=== PATIENT | female | born 1985 | race Caucasian/White ===

== ENCOUNTER 2018-04-18 10:06 | Emergency (ER) | payer OTHER ==
[2018-04-18 10:16] VITALS: RESP 18
[2018-04-18] MEDS ORDERED: SODIUM CHLORIDE 0.9% 1,000 ML IV STA (10:38)
--- NOTE | 2018-04-18 10:40 | ED ---
General Adult HPI - General Chief complaint: Abdominal Pain Stated complaint: cramping; Time Seen by Provider: 04/18/18 10:24 Source: patient, RN notes reviewed Mode of arrival: ambulatory Limitations: no limitations - History of Present Illness Initial comments: Patient 33-year-old female who is approximately 2 months by last menstrual cycle, presenting to the emergency room today with a chief complaint of abdominal cramping and dysuria. Patient does admit that she's been seen at [facility] twice during this . She states she's had 2 ultrasounds but they have not been able to confirm . She states that she's been having cramping is been trying follow-up with her OB. States she still does not have an appointment. Patient states that she was diagnosed with urinary tract infection was on antibiotics but still having symptoms of dysuria. Patient denies any other complaints or symptoms. Denies vaginal bleeding or discharge. Patient denies any recent fever, chills, shortness of breath, chest pain, back pain, constipation or diarrhea, headaches or visual changes, or any other complaints. - Related Data Previous Rx's Medication Instructions Recorded Ciprofloxacin HCl [Cipro] 500 mg PO Q12HR #20 day 09/11/15 Phenazopyridine [Pyridium] 100 mg PO TID 3 Days day 09/11/15 Potassium Chloride ER [K-Dur 20] 20 meq PO DAILY 5 Days tab 09/11/15 Nitrofurantoin Monohyd/M-Cryst 100 mg PO Q12HR #14 cap 04/18/18 [Macrobid] Allergies Allergy/AdvReac Type Severity Reaction Status Date / Time Sulfa (Sulfonamide Allergy Unknown Verified 04/18/18 10:16 Antibiotics) Review of Systems ROS Statement: Those systems with pertinent positive or pertinent negative responses have been documented in the HPI. ROS Other: All systems not noted in ROS Statement are negative. Past Medical History Past Medical History: No Reported History Additional Past Medical History / Comment(s): pt states hx of kidney failure History of Any Multi-Drug Resistant Organisms: None Reported Past Surgical History: Cholecystectomy Additional Past Surgical History / Comment(s): 2010 Additional Past Anesthesia/Blood Transfusion Reaction / Comment(s): Pt states diffifulty waking up after cholecystectomy; no complication c\epidurals Past Psychological History: No Psychological Hx Reported Smoking Status: Current every day smoker Past Alcohol Use History: Occasional Past Drug Use History: None Reported - Past Family History Mother Family Medical History: No Reported History General Exam - General Exam Comments Initial Comments: General: The patient is awake and alert, in no distress, and does not appear acutely ill. Eye: Extra-ocular movements are intact. No nystagmus. There is normal conjunctiva bilaterally. No signs of icterus. Ears, nose, mouth and throat: There are moist mucous membranes and no oral lesions. Neck: The neck is supple, there is no tenderness or JVD. Cardiovascular: There is a regular rate and rhythm. No murmur, rub or gallop is appreciated. Respiratory: Lungs are clear to auscultation, respirations are non-labored, breath sounds are equal. No wheezes, stridor, rales, or rhonchi. Gastrointestinal: Soft, non-distended, non-tender abdomen without masses or organomegaly noted. There is no rebound or guarding present. No CVA tenderness. Musculoskeletal: Normal ROM, no tenderness. Sensation intact. Neurological: A&O x 3. CN II-XII intact, There are no obvious motor or sensory deficits. Coordination appears grossly intact. Speech is normal. Skin: Skin is warm and dry and no rashes or lesions are noted. Psychiatric: Cooperative, appropriate mood & affect, normal judgment. Limitations: no limitations Course Vital Signs 04/18/18 10:12 Temperature 98.1 F Pulse Rate 89 Respiratory 18 Rate Blood Pressure 108/68 O2 Sat by Pulse 99 Oximetry Medical Decision Making - Medical Decision Making Patient reexamined at this time shows no signs of distress she is resting comfortably. Patient's urinalysis does show evidence for urinary tract infection. Culture is pending. Patient's main labs unremarkable. Patient's ultrasound does show cecal IUP measuring 12 weeks 0 days today. Patient denies any vaginal bleeding or discharge. Patient given dose of Rocephin prior to discharge will be started on Macrobid. She is advised follow-up over the next 2 days with OB. Advised to have repeat urinalysis. Advised returning if there is any fever or increase or worsening symptoms. - Lab Data Result diagrams: 04/18/18 11:07 04/18/18 11:07 Lab Results 04/18/18 04/18/18 04/18/18 Range/Units 11:07 11:07 11:07 WBC 8.2 (3.8-10.6) k/uL RBC 4.31 (3.80-5.40) m/uL Hgb 12.2 (11.4-16.0) gm/dL Hct 37.5 (34.0-46.0) % MCV 86.8 (80.0-100.0) fL MCH 28.4 (25.0-35.0) pg MCHC 32.7 (31.0-37.0) g/dL RDW 13.0 (11.5-15.5) % Plt Count 357 (150-450) k/uL Neutrophils % 66 % Lymphocytes % 23 % Monocytes % 6 % Eosinophils % 4 % Basophils % 1 % Neutrophils # 5.4 (1.3-7.7) k/uL Lymphocytes # 1.9 (1.0-4.8) k/uL Monocytes # 0.5 (0-1.0) k/uL Eosinophils # 0.3 (0-0.7) k/uL Basophils # 0.1 (0-0.2) k/uL Sodium 138 (137-145) mmol/L Potassium 4.2 (3.5-5.1) mmol/L Chloride 107 (98-107) mmol/L Carbon Dioxide 23 (22-30) mmol/L Anion Gap 8 mmol/L BUN 8 (7-17) mg/dL Creatinine 0.48 L (0.52-1.04) mg/dL Est GFR (CKD-EPI)AfAm >90 (>60 ml/min/1.73 sqM) Est GFR (CKD-EPI)NonAf >90 (>60 ml/min/1.73 sqM) Glucose 79 (74-99) mg/dL Calcium 9.4 (8.4-10.2) mg/dL Total Bilirubin 0.2 (0.2-1.3) mg/dL AST 15 (14-36) U/L ALT 29 (9-52) U/L Alkaline Phosphatase 36 L (38-126) U/L Total Protein 6.8 (6.3-8.2) g/dL Albumin 3.9 (3.5-5.0) g/dL HCG, Quant 61456.8 mIU/mL Urine Color Urine Appearance (Clear) Urine pH (5.0-8.0) Ur Specific [place] (1.001-1.035) Urine Protein (Negative) Urine Glucose (UA) (Negative) Urine Ketones (Negative) Urine Blood (Negative) Urine Nitrite (Negative) Urine Bilirubin (Negative) Urine Urobilinogen (<2.0) mg/dL Ur Leukocyte Esterase (Negative) Urine RBC (0-5) /hpf Urine WBC (0-5) /hpf Ur Squamous Epith Cells (0-4) /hpf Urine Bacteria (None) /hpf Urine Mucus (None) /hpf Blood Type A Positive Blood Type Recheck No 04/18/18 Range/Units 11:07 WBC (3.8-10.6) k/uL RBC (3.80-5.40) m/uL Hgb (11.4-16.0) gm/dL Hct (34.0-46.0) % MCV (80.0-100.0) fL MCH (25.0-35.0) pg MCHC (31.0-37.0) g/dL RDW (11.5-15.5) % Plt Count (150-450) k/uL Neutrophils % % Lymphocytes % % Monocytes % % Eosinophils % % Basophils % % Neutrophils # (1.3-7.7) k/uL Lymphocytes # (1.0-4.8) k/uL Monocytes # (0-1.0) k/uL Eosinophils # (0-0.7) k/uL Basophils # (0-0.2) k/uL Sodium (137-145) mmol/L Potassium (3.5-5.1) mmol/L Chloride (98-107) mmol/L Carbon Dioxide (22-30) mmol/L Anion Gap mmol/L BUN (7-17) mg/dL Creatinine (0.52-1.04) mg/dL Est GFR (CKD-EPI)AfAm (>60 ml/min/1.73 sqM) Est GFR (CKD-EPI)NonAf (>60 ml/min/1.73 sqM) Glucose (74-99) mg/dL Calcium (8.4-10.2) mg/dL Total Bilirubin (0.2-1.3) mg/dL AST (14-36) U/L ALT (9-52) U/L Alkaline Phosphatase (38-126) U/L Total Protein (6.3-8.2) g/dL Albumin (3.5-5.0) g/dL HCG, Quant mIU/mL Urine Color Yellow Urine Appearance Cloudy H (Clear) Urine pH 6.0 (5.0-8.0) Ur Specific [place] 1.018 (1.001-1.035) Urine Protein Trace H (Negative) Urine Glucose (UA) Negative (Negative) Urine Ketones Negative (Negative) Urine Blood Trace H (Negative) Urine Nitrite Negative (Negative) Urine Bilirubin Negative (Negative) Urine Urobilinogen 2.0 (<2.0) mg/dL Ur Leukocyte Esterase Large H (Negative) Urine RBC 8 H (0-5) /hpf Urine WBC 640 H (0-5) /hpf Ur Squamous Epith Cells 3 (0-4) /hpf Urine Bacteria Rare H (None) /hpf Urine Mucus Many H (None) /hpf Blood Type Blood Type Recheck Disposition Clinical Impression: UTI (urinary tract infection), Disposition: HOME SELF-CARE Condition: Good Instructions: Urinary Tract Infection in Women (ED) Additional Instructions: Please follow-up with FAMILY SUPPORT WORKER and have repeat urinalysis. Please use antibiotics as prescribed. Please return to emergency room if any symptoms increase worsen or for any other concerns. Prescriptions: Nitrofurantoin Monohyd/M-Cryst [Macrobid] 100 mg PO Q12HR #14 cap Is patient prescribed a controlled substance at d/c from ED?: No Referrals: Navarro Aguilera MD [Primary Care Provider] - 1-2 days Time of Disposition: 12:43
[2018-04-18 11:20] LABS: Basophils # (A) 0.1 k/uL (0-0.2); Basophils % (A) 1 %; Eosinophils # (A) 0.3 k/uL (0-0.7); Eosinophils % (A) 4 %; HCT 37.5 % (34.0-46.0); HGB 12.2 gm/dL (11.4-16.0); Lymphocytes # (A) 1.9 k/uL (1.0-4.8); Lymphocytes % (A) 23 %; MCH 28.4 pg (25.0-35.0); MCHC 32.7 g/dL (31.0-37.0); MCV 86.8 fL (80.0-100.0); Mean Platelet Volume 6.6; Monocytes # (A) 0.5 k/uL (0-1.0); Monocytes % (A) 6 %; Neutrophils # (A) 5.4 k/uL (1.3-7.7); Neutrophils % (A) 66 %; Platelet Count 357 k/uL (150-450); RBC 4.31 m/uL (3.80-5.40); WBC 8.2 k/uL (3.8-10.6)
[2018-04-18 11:28] LABS: Appearance,Urine Cloudy (Clear); Bacteria,Urine Rare /hpf; Bilirubin,Urine Negative (Negative); Blood,Urine Trace (Negative); Color,Urine Yellow; Glucose,Urine (UA) Negative (Negative); Ketones,Urine Negative (Negative); Leukocyte Esterase,Urine Large (Negative); Mucus,Urine Many /hpf; Nitrite,Urine Negative (Negative); Protein,Urine Trace (Negative); RBC,Urine 8 /hpf (0-5); Specific Gravity,Urine 1.018 (1.001-1.035); Squamous Epithelial Cell,Urine 3 /hpf (0-4)
[2018-04-18 11:30] LABS: ALT 29 U/L (9-52); AST 15 U/L (14-36); Albumin 3.9 g/dL (3.5-5.0); Alkaline Phosphatase 36 U/L (38-126); Anion Gap 8 mmol/L; Blood Urea Nitrogen 8 mg/dL (7-17); Calcium 9.4 mg/dL (8.4-10.2); Carbon Dioxide 23 mmol/L (22-30); Chloride 107 mmol/L (98-107); Glucose 79 mg/dL (74-99); Potassium 4.2 mmol/L (3.5-5.1); Sodium 138 mmol/L (137-145); Total Bilirubin 0.2 mg/dL (0.2-1.3); Total Protein 6.8 g/dL (6.3-8.2)
--- NOTE | 2018-04-18 11:54 | US ---
EXAMINATION TYPE: Ultrasound OB <= 14 week fetus DATE OF EXAM: 04/18/2018 COMPARISON: None CLINICAL HISTORY: 33-year-old female Pain. Intermittent cramping x 2 months, 6, para 3, abort ion 1, miscarriage 1 EXAM PERFORMED: Transabdominal (TA) EXAM MEASUREMENTS: FINDINGS: GESTATIONAL AGE / DATING Physician Established: Not established yet Dates by LMP: Unknown Dates by First Scan: This is 1st scan Dates by Current Scan for: (12 weeks/0 days) EDC: 10/31/2018 MATERNAL ANATOMY Uterus: 11.7 x 8.0 x 8.6cm, anteverted Right Ovary: 2.8 x 1.2 x 1.3cm Left Ovary: 3.4 x 1.8 x 3.9cm Post CDS / Adnexa: wnl Presence of free fluid: no Presence of corpus luteal cyst: left ovary: 1.8 x 0.9 x 1.7cm cystic area, possible corpus luteum Presence of subchorionic bleed: no GESTATION / SURVEY CRL: 5.4cm (12 weeks/0 days) Yolk Sac (normal less than 6mm): 3.5mm Heart Rate: 163 bpm Rhythm: Normal IUP: Viable IUP Nuchal Translucency 10-14wks (normal less than 3mm): 1.3mm Date of LMP: Unknown Beta HcG (if available): Not available at time of exam. Therapeutic Program Worker notes: Viable single IUP measuring 12 weeks 0 days with a heart rate of 163bpm and an est imated delivery date of 10/31/2018. IMPRESSION: Single live intrauterine with gestational age of 12 weeks 0 days by crown-rump length. Comp lete survey recommended at 18-20 weeks.
[2018-04-18 12:21] LABS: HCG,Quantitative Serum 21598.8 mIU/mL
[2018-04-18 13:49] VITALS: BP 106/65; PULSE 71; TEMP 98.2
== END 2018-04-18 13:48 | disposition home or self-care (01) ==
LOC: EC 10:06
DX: O23.41 Unspecified infection of urinary tract in pregnancy, first trimester (principal); O99.331 Smoking (tobacco) complicating pregnancy, first trimester; F17.200 Nicotine dependence, unspecified, uncomplicated; Z3A.12 12 weeks gestation of pregnancy; Z88.2 Allergy status to sulfonamides; Z90.49 Acquired absence of other specified parts of digestive tract
CPT/HCPCS: 36415; 86900; 86901; 80053; 85025; 81001; 84702; 87086; 76813; 76801; 99284; 96365; 96361; J0696

== ENCOUNTER 2019-08-12 01:41 | Emergency (ER) | payer OTHER ==
[2019-08-12 02:14] LABS: Mucus,Urine Occasional /hpf; RBC,Urine 2 /hpf (0-5); Squamous Epithelial Cell,Urine 1 /hpf (0-4); WBC,Urine 1 /hpf (0-5)
[2019-08-12 02:15] LABS: Appearance,Urine Clear (Clear); Bilirubin,Urine Negative (Negative); Blood,Urine Trace (Negative); Color,Urine Yellow; Glucose,Urine (UA) Negative (Negative); Ketones,Urine Negative (Negative); Leukocyte Esterase,Urine Negative (Negative); Nitrite,Urine Negative (Negative); Protein,Urine Negative (Negative); Specific Gravity,Urine 1.026 (1.001-1.035)
[2019-08-12] MEDS ORDERED: AZITHROMYCIN 500 MG TAB PO STA (02:34)
[2019-08-12] MEDS ORDERED: cefTRIAXone 250 MG VIAL IM STA (02:34)
--- NOTE | 2019-08-12 03:19 | ED ---
General Adult HPI - General Chief complaint: Urogenital Stated complaint: Painful urination Time Seen by Provider: 08/12/19 01:55 Source: patient, RN notes reviewed Mode of arrival: ambulatory Limitations: no limitations - History of Present Illness Initial comments: 34-year-old female presents to the emergency dept for dysuria. Patient states she has had pain with urination for the past couple days. Denies difficulty urinating. Patient is concerned she could have a urinary tract infection or STD. Patient denies any abdominal pain. Denies any fevers or chills. Patient has no other complaints at this time including shortness of breath, chest pain, abdominal pain, nausea or vomiting, headache, or visual changes. - Related Data Allergies Allergy/AdvReac Type Severity Reaction Status Date / Time Sulfa (Sulfonamide Allergy Unknown Verified 08/12/19 01:52 Antibiotics) Review of Systems ROS Statement: Those systems with pertinent positive or pertinent negative responses have been documented in the HPI. ROS Other: All systems not noted in ROS Statement are negative. Past Medical History Past Medical History: No Reported History Additional Past Medical History / Comment(s): pt states hx of kidney failure in the past but resolved. History of Any Multi-Drug Resistant Organisms: None Reported Past Surgical History: Cholecystectomy Additional Past Surgical History / Comment(s): 2011, wisdom tooth 2016 Past Anesthesia/Blood Transfusion Reactions: No Reported Reaction Additional Past Anesthesia/Blood Transfusion Reaction / Comment(s): Pt states diffifulty waking up after cholecystectomy; no complication c\epidurals Past Psychological History: Depression Smoking Status: Current every day smoker Past Alcohol Use History: Occasional Past Drug Use History: None Reported - Past Family History Mother Family Medical History: No Reported History General Exam Limitations: no limitations General appearance: alert, in no apparent distress Head exam: Present: atraumatic, normocephalic, normal inspection Eye exam: Present: normal appearance, PERRL, EOMI. Absent: scleral icterus, conjunctival injection, periorbital swelling ENT exam: Present: normal exam, mucous membranes moist Neck exam: Present: normal inspection. Absent: tenderness, meningismus, lymphadenopathy Respiratory exam: Present: normal lung sounds bilaterally. Absent: respiratory distress, wheezes, rales, rhonchi, stridor Cardiovascular Exam: Present: regular rate, normal rhythm, normal heart sounds. Absent: systolic murmur, diastolic murmur, rubs, gallop, clicks GI/Abdominal exam: Present: soft, normal bowel sounds. Absent: distended, tenderness, guarding, rebound, rigid Course Vital Signs 08/12/19 08/12/19 01:50 03:27 Temperature 98 F 97.8 F Pulse Rate 79 81 Respiratory 18 20 Rate Blood Pressure 135/89 129/79 O2 Sat by Pulse 98 97 Oximetry Medical Decision Making - Medical Decision Making 34-year-old patient presents for dysuria. Concern for STDs. No abdominal pain or fever suggestive of PID. Urinalysis unremarkable. Culture pending given dysuria. Trichomonas is negative. Gonorrhea and chlamydia pending. Patient does wish to be treated empirically for these. Patient will follow up on results. She'll return if here if she has any worsening symptoms. - Lab Data Lab Results 08/12/19 08/12/19 08/12/19 Range/Units 01:52 01:52 02:39 Urine Color Yellow Urine Appearance Clear (Clear) Urine pH 6.0 (5.0-8.0) Ur Specific [place] 1.026 (1.001-1.035) Urine Protein Negative (Negative) Urine Glucose (UA) Negative (Negative) Urine Ketones Negative (Negative) Urine Blood Trace H (Negative) Urine Nitrite Negative (Negative) Urine Bilirubin Negative (Negative) Urine Urobilinogen 2.0 (<2.0) mg/dL Ur Leukocyte Esterase Negative (Negative) Urine RBC 2 (0-5) /hpf Urine WBC 1 (0-5) /hpf Ur Squamous Epith Cells 1 (0-4) /hpf Urine Mucus Occasional H (None) /hpf Urine HCG, Qual Not Detected (Not Detectd) Trichomonas Ag (Rapid) Negative (Negative) Disposition Clinical Impression: Dysuria Disposition: HOME SELF-CARE Condition: Good Instructions (If sedation given, give patient instructions): Dysuria (ED) Additional Instructions: Please follow up on urine culture and gonorrhea/Chlamydia results. Please follow-up with primary care in 1-2 days. Return to the emergency department if you have any worsening symptoms such as abdominal pain or fevers. You were treated for both gonorrhea and chlamydia. Is patient prescribed a controlled substance at d/c from ED?: No Referrals: Navarro Aguilera MD [Primary Care Provider] - 1-2 days Time of Disposition: 03:19
[2019-08-12 03:28] VITALS: BP 129/79; PULSE 81; RESP 20; TEMP 97.8
[2019-08-13 12:30] LABS: C. trachomatis,PCR Negative (Neg,Equiv); Chlamydia trachomatis Source Urine
[2019-08-13 12:31] LABS: N. gonorrhoeae,PCR Negative (Neg,Equiv); Neisseria Source Urine
== END 2019-08-12 03:28 | disposition home or self-care (01) ==
LOC: EC 01:41
DX: R30.0 Dysuria (principal); F17.200 Nicotine dependence, unspecified, uncomplicated; Z88.2 Allergy status to sulfonamides
CPT/HCPCS: 81001; 81025; 87808; 87491; 87591; 87086; 99283; J0696

== ENCOUNTER 2021-08-27 21:16 | Emergency (ER) | payer OTHER ==
[2021-08-27] MEDS ORDERED: ACETAMINOPHEN TAB 500 MG TAB PO STA (21:41)
[2021-08-27] MEDS ORDERED: ONDANSETRON ODT 4 MG TAB PO STA (21:43)
[2021-08-27] MEDS ORDERED: SODIUM CHLORIDE 0.9% 1,000 ML IV STA (21:43)
--- NOTE | 2021-08-27 22:11 | ED ---
General Adult HPI - General Source: patient Mode of arrival: ambulatory Limitations: no limitations <Mag Childress - Last Filed: 08/27/21 23:12> <Walker Fried - Last Filed: 08/27/21 23:59> - General Chief complaint: Back Pain/Injury Stated complaint: Back Pain, Abdominal Pain Time Seen by Provider: 08/27/21 21:23 - History of Present Illness Initial comments: This 36-year-old female presents emergency Department with lower back pain that began today at 2 PM. Patient states "I think it's my kidneys that her." Patient states that out of nowhere she began having back pain today and has had a dull aching headache that has slowly been progressing. Patient states she often gets headaches and this feels similar to her usual headaches. Patient states she has a history of kidney infections and "swollen kidneys" Patient states she does feel nauseous and states her pain is 8/10. Patient states her b ack pain does not radiate anywhere. She states she has noticed more cloudy urine over the last couple days but denies any hesitancy, urgency, dribbling. Patient denies any vomiting, chest pain, shortness of breath, abdominal pain, change in vision, bowel/bladder incontinence or retention, saddle anesthesia, vaginal discharge. She denies any back trauma or falls. (Mag Childress) - Related Data Allergies Allergy/AdvReac Type Severity Reaction Status Date / Time Sulfa (Sulfonamide Allergy Unknown Verified 08/27/21 21:19 Antibiotics) Review of Systems ROS Other: All systems not noted in ROS Statement are negative. <Mag Childress - Last Filed: 08/27/21 23:12> ROS Other: All systems not noted in ROS Statement are negative. <Walker Fried - Last Filed: 08/27/21 23:59> ROS Statement: Those systems with pertinent positive or pertinent negative responses have been documented in the HPI. Past Medical History Past Medical History: No Reported History Additional Past Medical History / Comment(s): pt states hx of kidney failure in the past but resolved. History of Any Multi-Drug Resistant Organisms: None Reported Past Surgical History: Cholecystectomy Additional Past Surgical History / Comment(s): 2011, wisdom tooth 2016 Past Anesthesia/Blood Transfusion Reactions: No Reported Reaction Additional Past Anesthesia/Blood Transfusion Reaction / Comment(s): Pt states diffifulty waking up after cholecystectomy; no complication c\\epidurals Past Psychological History: Anxiety, Depression Smoking Status: Current every day smoker Past Alcohol Use History: None Reported, Occasional Past Drug Use History: Marijuana - Past Family History Mother Family Medical History: No Reported History <Mag Childress - Last Filed: 08/27/21 23:12> General Exam Limitations: no limitations General appearance: alert, in no apparent distress Head exam: Present: atraumatic, normocephalic, other (No pain on palpation over her temples. No TMJ pain) Eye exam: Present: normal appearance, EOMI Neck exam: Present: normal inspection, full ROM. Absent: tenderness, meningismus, lymphadenopathy Respiratory exam: Present: normal lung sounds bilaterally. Absent: respiratory distress, wheezes, rales, rhonchi, stridor Cardiovascular Exam: Present: regular rate, normal rhythm, normal heart sounds. Absent: systolic murmur, diastolic murmur, rubs, gallop, clicks GI/Abdominal exam: Present: soft, tenderness (Bilateral lower quadrants with slight discomfort to deep palpation), normal bowel sounds. Absent: distended, guarding, rebound, rigid Extremities exam: Present: full ROM Back exam: Present: normal inspection, full ROM. Absent: tenderness, CVA tenderness (R), CVA tenderness (L), paraspinal tenderness, vertebral tenderness Neurological exam: Present: alert, oriented X3, CN II-XII intact Psychiatric exam: Present: normal affect, normal mood Skin exam: Present: warm, dry, intact, normal color. Absent: rash <LatoshadaytonMag abdullahi - Last Filed: 08/27/21 23:12> General appearance: alert, in no apparent distress Head exam: Present: atraumatic, normocephalic, normal inspection Eye exam: Present: normal appearance, PERRL, EOMI. Absent: scleral icterus, conjunctival injection, periorbital swelling ENT exam: Present: normal exam, mucous membranes moist Neck exam: Present: normal inspection. Absent: tenderness, meningismus, lymphadenopathy Respiratory exam: Present: normal lung sounds bilaterally. Absent: respiratory distress, wheezes, rales, rhonchi, stridor Cardiovascular Exam: Present: regular rate, normal rhythm, normal heart sounds. Absent: systolic murmur, diastolic murmur, rubs, gallop, clicks GI/Abdominal exam: Present: soft, normal bowel sounds. Absent: distended, tenderness, guarding, rebound, rigid Extremities exam: Present: normal inspection, full ROM, normal capillary refill. Absent: tenderness, pedal edema, joint swelling, calf tenderness Back exam: Present: normal inspection Neurological exam: Present: alert, oriented X3, CN II-XII intact Psychiatric exam: Present: normal affect, normal mood Skin exam: Present: warm, dry, intact, normal color. Absent: rash <Walker Fried - Last Filed: 08/27/21 23:59> Course <Mag Childress - Last Filed: 08/27/21 23:12> <Walker Fried - Last Filed: 08/27/21 23:59> Vital Signs 08/27/21 08/27/21 21:19 23:08 Temperature 100.1 F H 100.9 F H Pulse Rate 119 H 102 H Respiratory 20 20 Rate Blood Pressure 117/55 118/76 O2 Sat by Pulse 99 99 Oximetry - Reevaluation(s) Reevaluation #1: 08/27/21 22:30 Patient states she does not feel nauseous at this time and states her pain is decreased from an 8/10 down to a 4/10. 08/27/21 22:56 Patient sleeping, resting comfortably. 08/27/21 23:06 Patient states she is not nauseous her back pain has improved. She does state she still has mild headache. (Mag Childress) Reevaluation #2: 08/27/21 23:57 Medical record is reviewed (Walker Fried) Reevaluation #3: 08/27/21 23:57 Patient has significant improvement in symptoms here in the emergency department (Walker Fried) Medical Decision Making - Lab Data Result diagrams: 08/27/21 22:06 08/27/21 22:06 <Mag Childress - Last Filed: 08/27/21 23:12> - Lab Data Result diagrams: 08/27/21 22:06 08/27/21 22:06 - Radiology Data Radiology results: report reviewed (CT abd pelvis is negative for acute disease), image reviewed <Walker Fried - Last Filed: 08/27/21 23:59> - Medical Decision Making This 36-year-old female presents emergency Department with lower back pain that began at 2 PM today. After fluids and Tylenol, patient states she no longer feels nauseous and that her pain has significantly decreased in her back. Urine showed UTI with: Large leukocyte esterase, BBC 68, RBC 16, moderate blood. Urine hCG not detected. Labs unremarkable. (Mag Childress) 36 female to emergency department today with back pain and urinary tract i nfection, patient does have polynephritis will be discharged home on antibiotics (Walker Fried) - Lab Data Lab Results 08/27/21 08/27/21 08/27/21 Range/Units 22:06 22:06 22:06 WBC 10.3 (3.8-10.6) k/uL RBC 4.61 (3.80-5.40) m/uL Hgb 13.5 (11.4-16.0) gm/dL Hct 40.6 (34.0-46.0) % MCV 88.0 (80.0-100.0) fL MCH 29.2 (25.0-35.0) pg MCHC 33.2 (31.0-37.0) g/dL RDW 13.2 (11.5-15.5) % Plt Count 332 (150-450) k/uL MPV 8.3 Neutrophils % 86 % Lymphocytes % 3 % Monocytes % 9 % Eosinophils % 2 % Basophils % 1 % Neutrophils # 8.9 H (1.3-7.7) k/uL Lymphocytes # 0.3 L (1.0-4.8) k/uL Monocytes # 0.9 (0-1.0) k/uL Eosinophils # 0.2 (0-0.7) k/uL Basophils # 0.1 (0-0.2) k/uL Sodium (137-145) mmol/L Potassium (3.5-5.1) mmol/L Chloride (98-107) mmol/L Carbon Dioxide (22-30) mmol/L Anion Gap mmol/L BUN (7-17) mg/dL Creatinine (0.52-1.04) mg/dL Est GFR (CKD-EPI)AfAm (>60 ml/min/1.73 sqM) Est GFR (CKD-EPI)NonAf (>60 ml/min/1.73 sqM) Glucose (74-99) mg/dL Plasma Lactic Acid Yordy (0.7-2.0) mmol/L Calcium (8.4-10.2) mg/dL Total Bilirubin (0.2-1.3) mg/dL AST (14-36) U/L ALT (4-34) U/L Alkaline Phosphatase (38-126) U/L Total Protein (6.3-8.2) g/dL Albumin (3.5-5.0) g/dL Lipase (23-300) U/L Urine Color Yellow Urine Appearance Cloudy H (Clear) Urine pH 6.0 (5.0-8.0) Ur Specific [place] 1.026 (1.001-1.035) Urine Protein Trace H (Negative) Urine Glucose (UA) Negative (Negative) Urine Ketones 1+ H (Negative) Urine Blood Moderate H (Negative) Urine Nitrite Negative (Negative) Urine Bilirubin Negative (Negative) Urine Urobilinogen 2.0 (<2.0) mg/dL Ur Leukocyte Esterase Large H (Negative) Urine RBC 16 H (0-5) /hpf Urine WBC 68 H (0-5) /hpf Ur Squamous Epith Cells 12 H (0-4) /hpf Urine Bacteria Many H (None) /hpf Urine Mucus Many H (None) /hpf Urine HCG, Qual Not Detected (Not Detectd) Coronavirus (PCR) (Not Detectd) 08/27/21 08/27/21 08/27/21 Range/Units 22:06 22:06 23:05 WBC (3.8-10.6) k/uL RBC (3.80-5.40) m/uL Hgb (11.4-16.0) gm/dL Hct (34.0-46.0) % MCV (80.0-100.0) fL MCH (25.0-35.0) pg MCHC (31.0-37.0) g/dL RDW (11.5-15.5) % Plt Count (150-450) k/uL MPV Neutrophils % % Lymphocytes % % Monocytes % % Eosinophils % % Basophils % % Neutrophils # (1.3-7.7) k/uL Lymphocytes # (1.0-4.8) k/uL Monocytes # (0-1.0) k/uL Eosinophils # (0-0.7) k/uL Basophils # (0-0.2) k/uL Sodium 138 (137-145) mmol/L Potassium 3.5 (3.5-5.1) mmol/L Chloride 104 (98-107) mmol/L Carbon Dioxide 21 L (22-30) mmol/L Anion Gap 13 mmol/L BUN 6 L (7-17) mg/dL Creatinine 0.67 (0.52-1.04) mg/dL Est GFR (CKD-EPI)AfAm >90 (>60 ml/min/1.73 sqM) Est GFR (CKD-EPI)NonAf >90 (>60 ml/min/1.73 sqM) Glucose 96 (74-99) mg/dL Plasma Lactic Acid Yordy 1.2 (0.7-2.0) mmol/L Calcium 10.0 (8.4-10.2) mg/dL Total Bilirubin 0.3 (0.2-1.3) mg/dL AST 30 (14-36) U/L ALT 25 (4-34) U/L Alkaline Phosphatase 56 (38-126) U/L Total Protein 7.6 (6.3-8.2) g/dL Albumin 4.6 (3.5-5.0) g/dL Lipase 35 (23-300) U/L Urine Color Urine Appearance (Clear) Urine pH (5.0-8.0) Ur Specific [place] (1.001-1.035) Urine Protein (Negative) Urine Glucose (UA) (Negative) Urine Ketones (Negative) Urine Blood (Negative) Urine Nitrite (Negative) Urine Bilirubin (Negative) Urine Urobilinogen (<2.0) mg/dL Ur Leukocyte Esterase (Negative) Urine RBC (0-5) /hpf Urine WBC (0-5) /hpf Ur Squamous Epith Cells (0-4) /hpf Urine Bacteria (None) /hpf Urine Mucus (None) /hpf Urine HCG, Qual (Not Detectd) Coronavirus (PCR) Not Detected (Not Detectd) Disposition <Mag Childress - Last Filed: 08/27/21 23:12> Is patient prescribed a controlled substance at d/c from ED?: No <Walker Fried - Last Filed: 08/27/21 23:59> Clinical Impression: UTI (urinary tract infection), Pyelonephritis Disposition: HOME SELF-CARE Condition: Good Instructions (If sedation given, give patient instructions): Kidney Infection (ED), Urinary Tract Infection in Women (ED) Prescriptions: Cephalexin [Keflex] 500 mg PO Q6HR 1 Days #40 cap Referrals: Navarro Aguilera MD [Primary Care Provider] - 1-2 days
[2021-08-27 22:43] LABS: Basophils # (A) 0.1 k/uL (0-0.2); Basophils % (A) 1 %; Eosinophils # (A) 0.2 k/uL (0-0.7); Eosinophils % (A) 2 %; HCT 40.6 % (34.0-46.0); HGB 13.5 gm/dL (11.4-16.0); Lymphocytes # (A) 0.3 k/uL (1.0-4.8); Lymphocytes % (A) 3 %; MCH 29.2 pg (25.0-35.0); MCHC 33.2 g/dL (31.0-37.0); Mean Platelet Volume 8.3; Monocytes # (A) 0.9 k/uL (0-1.0); Monocytes % (A) 9 %; Neutrophils # (A) 8.9 k/uL (1.3-7.7); Neutrophils % (A) 86 %; Platelet Count 332 k/uL (150-450); RBC 4.61 m/uL (3.80-5.40); RDW 13.2 % (11.5-15.5); WBC 10.3 k/uL (3.8-10.6)
[2021-08-27 22:45] LABS: Appearance,Urine Cloudy (Clear); Bacteria,Urine Many /hpf; Bilirubin,Urine Negative (Negative); Blood,Urine Moderate (Negative); Color,Urine Yellow; Glucose,Urine (UA) Negative (Negative); Ketones,Urine 1+ (Negative); Leukocyte Esterase,Urine Large (Negative); Mucus,Urine Many /hpf; Nitrite,Urine Negative (Negative); Protein,Urine Trace (Negative); RBC,Urine 16 /hpf (0-5); Specific Gravity,Urine 1.026 (1.001-1.035); Squamous Epithelial Cell,Urine 12 /hpf (0-4); WBC,Urine 68 /hpf (0-5)
[2021-08-27 22:54] LABS: ALT 25 U/L (4-34); AST 30 U/L (14-36); African American GFR (CKD) >90 (>60 ml/min/1.73 sqM); Albumin 4.6 g/dL (3.5-5.0); Alkaline Phosphatase 56 U/L (38-126); Anion Gap 13 mmol/L; Blood Urea Nitrogen 6 mg/dL (7-17); Carbon Dioxide 21 mmol/L (22-30); Chloride 104 mmol/L (98-107); Glucose 96 mg/dL (74-99); Lipase 35 U/L (23-300); Non-African American GFR(CKD) >90 (>60 ml/min/1.73 sqM); Potassium 3.5 mmol/L (3.5-5.1); Sodium 138 mmol/L (137-145); Total Bilirubin 0.3 mg/dL (0.2-1.3); Total Protein 7.6 g/dL (6.3-8.2)
[2021-08-27] MEDS ORDERED: ONDANSETRON 4 MG/2 ML VIAL IVP STA (23:11)
[2021-08-27] MEDS ORDERED: KETOROLAC 15 MG/ML 1 ML VIAL IVP STA (23:11)
--- NOTE | 2021-08-27 23:51 | CT ---
EXAMINATION TYPE: CT abdomen pelvis wo con DATE OF EXAM: 08/27/2021 COMPARISON: 04/26/2010 HISTORY: Abdominal pain CT DLP: 524.2 mGycm Automated exposure control for dose reduction was used. Images obtained from the diaphragm to the floor the pelvis with no contrast. There is some mild subsegmental atelectasis in the lingula left upper lobe. There is no pleural effus ion. Heart size is normal. There is no pericardial effusion. There are clips from cholecystectomy. Liver is intact. Spleen is intact. There is no evidence of panc reatic mass. Stomach has normal contour. The bile ducts are not dilated. There is no adrenal mass. Kidneys of normal size. There is slight fullness of the left and right aleisha l pelvis but the ureters are not dilated. I see no evidence of a ureteral calculus. The uterus is ant everted. Bladder distends smoothly. There is no inguinal hernia. There is no free fluid in the pelvis . Appendix is posterior and appears normal. There is no mesenteric edema. There is broad-based umbilica l hernia that contains fat. There is no ascites or free air. There is no evidence of a bowel obstruct ion. No pelvic mass. The lumbar vertebrae have normal alignment. There is no compression fracture. Po sterior elements are intact. The bony pelvis is intact. Hip joints appear normal. IMPRESSION: No acute abnormality of the abdomen and pelvis. Normal appendix. Mild broad-based umbilical hernia co ntaining fat. There is clearing of the ovarian cysts compared to old exam. Normal appendix. There is small lingular infiltrate and atelectasis which is new compared to old exam. No evidence of renal stone or obstruction.
[2021-08-27] MEDS ORDERED: CEPHALEXIN 500MG STARTER PACK 4 CAP BTL PO STA (23:54)
[2021-08-27] MEDS ORDERED: IBUPROFEN 600 MG STARTER PACK 4 TAB BTL PO STA (23:54)
[2021-08-28 01:09] VITALS: BP 110/56; PULSE 99; RESP 16; TEMP 99.4
[2021-08-28] MEDS ORDERED: diphenhydrAMINE 50 MG/ML 1 ML VIAL IVP STA (01:16)
[2021-08-28] MEDS ORDERED: PROCHLORPERAZINE INJ 10 MG/2 ML VIAL IVP STA (01:16)
[2021-08-28] MEDS ORDERED: AZITHROMYCIN 500 MG TAB PO STA (01:16)
[2021-08-28] MEDS ORDERED: IBUPROFEN 800 MG TAB PO STA (01:16)
== END 2021-08-28 01:22 | disposition home or self-care (01) ==
LOC: EC 21:16
DX: N39.0 Urinary tract infection, site not specified (principal); N12 Tubulo-interstitial nephritis, not specified as acute or chronic; F17.200 Nicotine dependence, unspecified, uncomplicated; Z20.822 Contact with and (suspected) exposure to COVID-19; Z88.2 Allergy status to sulfonamides
CPT/HCPCS: 99284; 96365; 96375; 96361; 36415; 80053; 83605; 83690; 85025; 81001; 81025; 87086; 87635; 74176; J1200; J0780; J2405; J0696; J1885

== ENCOUNTER → 2021-10-20 | Outpatient (CLI) | payer OTHER ==
--- NOTE | 2021-10-20 09:57 | MM ---
Reason for exam: clinical finding. Baseline mammogram. History: Patient has breast cancer gene. Family history of breast cancer in maternal grandmother and breast cancer in maternal aunt. Indicated problem(s): lump or thickening in the left breast. Physical Findings: A clinical breast exam by your physician is recommended on an annual basis and results should be correlated with mammographic findings. [facility] Diagnostic Mammo w CAD JIM Bilateral CC and MLO view(s) were taken. The breast tissue is heterogeneously dense. This may lower the sensitivity of mammography. 8mm nodule right breast at 9 o'clock, 4.2cm from nipple. Left breast 12 o'clock thickened areola. Ultrasound left palpable. These results were verbally communicated with the patient and result sheet given to the patient on 10/20/21. ASSESSMENT: Incomplete: need additional imaging evaluation, BI-RAD 0 RECOMMENDATION: Ultrasound of both breasts. Manage patient on a clinical basis.
--- NOTE | 2021-10-20 10:00 | USB ---
Reason for exam: additional evaluation requested from abnormal screening. History: Patient has breast cancer gene. Family history of breast cancer in maternal grandmother and breast cancer in maternal aunt. Physical Findings: A clinical breast exam by your physician is recommended on an annual basis and results should be correlated with mammographic findings. US Breast Limited BILAT Left limited breast ultrasound including focal area of concern, retroareolar and axilla demonstrates a 0.5 x 0.2 x 0.6cm questionable sebaceous cyst at 11 o'clock areola, a 0.5 x 0.4 x 0.6cm lesion at 11 o'clock and a 0.5 x 0.4 x 0.5cm lesion at 12 o'clock. Left limited breast ultrasound including focal area of concern, retroareolar and axilla is negative. Scanned 9-12 o'clock bilaterally. These results were verbally communicated with the patient and result sheet given to the patient on 10/20/21. ASSESSMENT: Probably benign, BI-RAD 3 RECOMMENDATION: Follow-up diagnostic mammogram and ultrasound of the left breast in 6 months. Manage patient on a clinical basis.
== END | disposition home or self-care (01) ==
LOC: RADMAMWWP 08:14
PROVIDERS: ATTEND Obstetrics & Gynecology
DX: N63.20 Unspecified lump in the left breast, unspecified quadrant (principal)
CPT/HCPCS: 77066

== ENCOUNTER → 2021-11-26 | Outpatient (CLI) | payer OTHER ==
[2021-11-26 11:16] VITALS: BP 125/89; PULSE 83; RESP 17; TEMP 97.8
--- NOTE | 2021-11-26 11:46 | P.GSHP ---
History of Present Illness H&P Date: 11/26/21 Chief Complaint: abnormal mammogram/ left breast ultrasound Marielena is a 36 year old white female seen in consultation for Dr. Nixon regarding a nodule in her left breast for several days. The nodularity was close to the areolar and has since decreased in size. The patient however obtained a bilateral mammogram and bilateral breast ultrasound. The bilateral mammogram this time and this was felt to be incomplete and bilateral breast ultrasound was recommended. On the ultrasound demonstrated date the findings were Left breast: 0.5 x 0.6 cm questionable sebaceous cyst at 11:00 areolar 0.5 x 0.6 cm lesion at 11:00 0.5 x 0.5 cm lesion at 12:00 Right breast: No lesions of concern identified. At this time the patient does not have any new lumps masses or notches of concern in either breast. Additionally the patient does not have any new pains in her breast. She is not complaining of any nipple discharge or skin changes. She has never had any surgery on her breast. The patient had genetic testing performed and is not has been noted to have an DC mutation. She was given a discussion regarding prophylactic tamoxifen and/or prophylactic mastectomy. The testing was done in 2019. Studies for increased risk of breast cancer ranged from 20-60%. Additionally it appears that there may be an increased risk for pancreatic and colon cancer. Caffeine: mountain dew all day nicotine: 1 PPD/ 20 years chocolate: rare BCP: depo shot; every three months hormones: none Family History: son: neuroblastoma stage 4 diagnosed at 3, he is 6 at this time maternal grandmother: breast, lung cancer maternal great aunt: lung cancer maternal great uncle: rectal cancer Hormonal History: menarche: 16 A2, age at first live : 18, breast fed: yes periods regular: LMP 1 month ago BCP: took them when a teen ager, and used nuvaring Surgical History: gallbladder Medical History: none Social History: Nicotine: One pack per day Alcohol: Negative Drugs: Negative - Constitutional Constitutional: Denies chills, Denies fever - EENT Eyes: bilateral blurred vision, bilateral pain Ears: right: tinnitus, deny: decreased hearing Ears, nose, mouth and throat: Reports headache - Breasts Breasts: bilateral: as per HPI - Cardiovascular Cardiovascular: Reports chest pain - Respiratory Comment: smoker - Gastrointestinal Gastrointestinal: Reports constipation - Genitourinary (Female) Comment: UTI frequant - Menstruation Menstruation: Reports as per HPI - Musculoskeletal Musculoskeletal: Denies myalgias - Integumentary Integumentary: Denies pruritus, Denies rash - Neurological Neurological: Denies numbness, Denies weakness - Psychiatric Psychiatric: Reports anxiety - Endocrine Endocrine: Reports fatigue - Hematologic/Lymphatic Comment: none - Allergic/Immunologic Allergic/Immunologic: Reports as per HPI Past Medical History Past Medical History: No Reported History Additional Past Medical History / Comment(s): pt states hx of kidney failure in the past but resolved. History of Any Multi-Drug Resistant Organisms: None Reported Past Surgical History: Cholecystectomy Additional Past Surgical History / Comment(s): 2011, wisdom tooth 2016 Past Anesthesia/Blood Transfusion Reactions: No Reported Reaction Additional Past Anesthesia/Blood Transfusion Reaction / Comment(s): Pt states diffifulty waking up after cholecystectomy; no complication c\epidurals Past Psychological History: Anxiety, Depression Additional Psychological History / Comment(s): states depression now due to 3 yr old with stage 4 cancer Smoking Status: Current every day smoker, Vaper Past Alcohol Use History: None Reported, Occasional Past Drug Use History: Marijuana Additional Drug Use History / Comment(s): states marijuana use as teen - Past Family History Mother Family Medical History: No Reported History Medications and Allergies Home Medications Medication Instructions Recorded Confirmed Type No Known Home Medications 11/26/21 11/26/21 History Allergies Allergy/AdvReac Type Severity Reaction Status Date / Time Sulfa (Sulfonamide Allergy Unknown Verified 11/26/21 11:13 Antibiotics) Surgical - Exam Vital Signs Temp Pulse Resp BP Pulse Ox 97.8 F 83 17 125/89 97 11/26/21 11:13 11/26/21 11:13 11/26/21 11:13 11/26/21 11:13 11/26/21 11:13 BMI: 29.3 - General no distress - Eyes normal ocular movement - Neck trachea midline - Respiratory normal respiratory effort - Cardiovascular Rhythm: regular Heart Sounds: normal: S1, S2 - Abdomen Abdomen: soft - Integumentary multiple tattoos - Neurologic no disoriented, no combative - Musculoskeletal normal gait - Psychiatric oriented to time, oriented to person, oriented to place, speech is normal, memory intact Breast examination: Bra: Sports bra medium Inspection: Bilateral grade 2 ptosis Palpation: Right breast: Multiple positional exam no dominant masses or nodules of concern Right axilla: No adenopathy of concern Left breast: Multi-positional exam no dominant masses or nodules of concern, the area of prior palpable abnormality is no longer palpable which the patient felt in the past Left axilla: No adenopathy of concern Results Mammogram and ultrasound reviewed in detail with Dr. Smith Assessment and Plan Assessment: Impression: Fibrocystic breast changes Abnormal left breast ultrasound DC mutation Positive family history of cancer Plan: After discussion with the patient and her mother the patient wishes an ultrasound core biopsy of the area at 12:00 in the left breast. This has been discussed with Dr. Smith initially we were considering watching the area however given the patient's DC mutation and concerns she would like to have a biopsy performed. Risk and benefits of the procedure discussed with the patient and her mother. Risks include but are not limited to bleeding, infection, reaction to the anesthetic. They understand and wish to proceed with the biopsy. They understand of the biopsy were discordant then further recommendation may be made. Cc: Dr. Aguilera
== END | disposition home or self-care (01) ==
LOC: WWCWWP 10:51
PROVIDERS: ATTEND Surgery
DX: Z53.9 Procedure and treatment not carried out, unspecified reason (principal)

== ENCOUNTER → 2021-12-08 | Day surgery (SDC) | payer OTHER ==
--- NOTE | 2021-12-09 07:36 | USB ---
EXAMINATION TYPE: US breast aspiration single LT DATE OF EXAM: 12/08/2021 CLINICAL HISTORY: R92.8 ABN MAMMO. TECHNIQUE: Ultrasound guided vaccuum assisted core biopsy of left breast. Ultrasound guided cyst asp iration left breast COMPARISON: 10/20/2021 ultrasound FINDINGS: The ultrasound guided core biopsy procedure was explained to the patient. The risks, benef its, alternatives were discussed. An informed consent was then obtained. Timeout was performed. The patient was placed in supine positioning for imaging and for the procedure. The overlying skin w as prepped with betadine and sterilely draped in usual sterile fashion. Lidocaine 1% was used as ane sthetic into the skin and deeper breast tissue up to area of concern in the breast. A small skin kelly k was made with surgical scalpel. Under ultrasound guidance, an 18-gauge vacuum assisted cyst aspiration device was used to obtain a sa mple. There was complete collapse of this very tiny cyst. A biopsy clip was left in lesion. Coil cli p was left at this location. Under ultrasound guidance, a 12-gauge vacuum assisted biopsy device was used to obtain 3 core samples . Additional sampling was not done, appear to be complete resection of the area in question. A biops y clip was left in lesion. [place] fam was placed. Good hemostasis was obtained with direct pressure. Discharge instructions were discussed with the isra russ. The patient will follow up with the referring physician for results. Postprocedure mammogram: The patient was transferred to mammography for physician ordered post proced ure mammogram for clip placement verification. The clips are in the expected regions of the biopsy. The patient tolerated the procedure well without any immediate complication. The patient was dischar ged to home in stable condition. IMPRESSION: 1. Successful ultrasound-guided cyst aspiration 11:00 position left breast. 2. Successful ultrasound guided biopsy left breast 12:00 position. Recommendations: 1. Recommendations are pending pathology results.
== END ==
LOC: RADUSWWP 12:35
PROVIDERS: ATTEND Surgery
DX: R92.8 Other abnormal and inconclusive findings on diagnostic imaging of breast (principal)
CPT/HCPCS: 19000; 19083; 88173; 77065; 76942; A4648; 88305; 88342

== ENCOUNTER → 2021-12-16 | Outpatient (CLI) | payer OTHER ==
[2021-12-16 08:19] VITALS: BP 128/87; PULSE 98; RESP 16; TEMP 98.1
--- NOTE | 2021-12-16 08:29 | P.PN ---
Subjective Progress Note Date: 12/16/21 Principal diagnosis: Fibrocystic breast changes Marielena is a 36-year-old white female status post ultrasound-guided core biopsy of her left breast at 12:00 and left breast at 11:00 on [id number]. Pathology from the 12 o'clock position revealed fibrocystic changes including fi beulah adenomatoid hyperplasia and serial angiomatous stromal hyperplasia. That at 11:00 revealed clusters of bland apocrine lining cells, foamy histiocytes and degenerative cellular material. She tolerated the procedure without difficulty. 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 It has been suggested that women who carry this mutation have a 20-60% increased risk for breast cancer. We also thought to be at increased risk for early onset breast cancer and bilateral breast cancer. Breast cancer screening with annual mammogram and consider breast MRI with contrast starting at the age of 40. She could also consider a risk reducing mastectomies. She underwent genetic testing secondary to the fact that her son has stage IV neuroblastoma. Family History: Maternal grandmother: cancer uncertain of the type Maternal great aunts: Lung cancer Maternal great uncle colon cancer uncertain of the type Maternal great aunt: cancer son: Stage IV neuroblastoma Objective - Constitutional General appearance: Present: cooperative - EENT Eyes: Present: EOMI ENT: Present: hearing grossly normal - Respiratory Respiratory: bilateral: CTA - Cardiovascular Heart sounds: normal: S1, S2 - Integumentary Integumentary Comment(s): Biopsy site clean and dry Integumentary: Present: normal turgor - Musculoskeletal Musculoskeletal: Present: gait normal - Psychiatric Psychiatric: Present: A&O x's 3, appropriate affect, intact judgment & insight Assessment and Plan Assessment: Impression: Biopsy left breast benign Patient has DC gene mutation Patient is at increased risk for breast cancer secondary to Armando mutation Plan: I discussed with the patient and her mother the option of prophylactic mastectomy, possible hormone endocrine therapy with appointment with medical oncology, and close surveillance At this time the patient would prefer close surveillance We will do a repeat bilateral mammogram in 1 year with physician exam at that time Repeat left breast mammogram in 6 months and I will see her at that time CC: Dr. Aguilera
== END | disposition home or self-care (01) ==
LOC: WWCWWP 08:01
PROVIDERS: ATTEND Surgery
DX: Z53.9 Procedure and treatment not carried out, unspecified reason (principal)

== ENCOUNTER 2023-08-27 09:51 | Emergency (ER) | payer OTHER ==
[2023-08-27 11:05] VITALS: RESP 16; TEMP 97.6
[2023-08-27] MEDS ORDERED: LIDOCAINE 4% PATCH TOPICAL ONE (11:13)
[2023-08-27] MEDS ORDERED: SODIUM CHLORIDE 0.9% 1,000 ML IV STA (11:13)
[2023-08-27] MEDS ORDERED: KETOROLAC 15 MG/ML 1 ML VIAL IVP STA (11:13)
--- NOTE | 2023-08-27 11:26 | ED ---
Back Pain HPI - General Chief Complaint: Urogenital Stated Complaint: R kidney pain Time Seen by Provider: 08/27/23 10:59 Source: patient, RN notes reviewed Mode of arrival: ambulatory Limitations: no limitations - History of Present Illness Initial Comments: This is a 38-year-old female who presents to the emergency department for right flank pain. States that this started on 08/16, and she went to a walk-in clinic at that time. She was told that there was blood in her urine and her pain may be related to an infection or kidney stone. She was started on a five-day course of antibiotics, which she has since finished. However, symptoms did not improve and she returned to the walk in clinic. They advised that this may be musculoskeletal in nature and recommended muscle relaxants, however the patient did not want to take those. They did recheck her urine today, and she was told there was not any additional blood present. She does occasionally have morning nausea. Denies any fevers or chills. Denies any history of kidney stones. The pain does not wrap around into the abdomen and she also denies any chest pain or shortness of breath. MD Complaint: back pain - Related Data Home Medications Medication Instructions Recorded Confirmed Medroxyprogesterone Acetate 150 mg IM QMONTHLY 12/16/21 12/16/21 [Depo-Provera] Previous Rx's Medication Instructions Recorded Ketorolac [Toradol] 10 mg PO Q6HR PRN #15 tab 08/27/23 Lidocaine 5% Patch [Lidoderm 5% 1 patch TOPICAL DAILY PRN #30 patch 08/27/23 Patch] methocarbamoL [Robaxin-750] 750 mg PO QID PRN #20 tab 08/27/23 Allergies Allergy/AdvReac Type Severity Reaction Status Date / Time Sulfa (Sulfonamide Allergy Unknown Verified 08/27/23 10:54 Antibiotics) Review of Systems ROS Statement: Those systems with pertinent positive or pertinent negative responses have been documented in the HPI. ROS Other: All systems not noted in ROS Statement are negative. Past Medical History Past Medical History: No Reported History Additional Past Medical History / Comment(s): pt states hx of kidney failure in the past but resolved. History of Any Multi-Drug Resistant Organisms: None Reported Past Surgical History: Cholecystectomy Additional Past Surgical History / Comment(s): 2011, wisdom tooth 2016 Past Anesthesia/Blood Transfusion Reactions: No Reported Reaction Additional Past Anesthesia/Blood Transfusion Reaction / Comment(s): Pt states diffifulty waking up after cholecystectomy; no complication c\epidurals Past Psychological History: Anxiety, Depression, Panic Disorder Smoking Status: Current every day smoker, Vaper Past Alcohol Use History: None Reported, Occasional Past Drug Use History: Marijuana - Past Family History Mother Family Medical History: No Reported History General Exam Limitations: no limitations General appearance: alert, in no apparent distress Head exam: Present: atraumatic, normocephalic, normal inspection Respiratory exam: Present: normal lung sounds bilaterally. Absent: respiratory distress, wheezes, rales, rhonchi, stridor Cardiovascular Exam: Present: regular rate, normal rhythm, normal heart sounds. Absent: systolic murmur, diastolic murmur, rubs, gallop, clicks GI/Abdominal exam: Present: soft, normal bowel sounds. Absent: distended, tenderness, guarding, rebound, rigid Back exam: Present: CVA tenderness (R) Neurological exam: Present: alert, oriented X3, CN II-XII intact Psychiatric exam: Present: normal affect, normal mood Skin exam: Present: warm, dry, intact, normal color. Absent: rash Course Vital Signs 08/27/23 08/27/23 10:49 14:10 Temperature 97.6 F 97.6 F Pulse Rate 72 80 Respiratory 16 16 Rate Blood Pressure 124/85 132/97 O2 Sat by Pulse 95 100 Oximetry Medical Decision Making - Medical Decision Making This is a 38-year-old female who presents to the emergency department for right flank pain. Was pt. sent in by a medical professional or institution? @ -No Did you speak to anyone other than the patient for history? @ -No Did you review nursing and triage notes? @ -Yes, and I agree, it is accurate with regards to the patient's symptoms. Were old charts reviewed? @ -No Differential Diagnosis? @ -Differential Back Pain: Strain, zoster, cauda equina syndrome, epidural abscess, vertebral osteomyelitis, discitis, fracture, subluxation, disc herniation, DJD, spinal stenosis, dissection, AAA, pancreatitis, peptic ulcer disease, pyelonephritis, kidney stone, this is not meant to be an all-inclusive list. EKG interpreted by me (3pts min.)? @ -Not obtained X-rays interpreted by me (1pt min.)? @ -Not obtained CT interpreted by me (1pt min.)? @ -CT scan of the abdomen/pelvis obtained. My interpretation identifies no evidence of a ureteral calculus. U/S interpreted by me (1pt. min.)? @ -Not obtained What testing was considered but not performed? (CT, X-rays, U/S, labs)? Why? @ -None What meds were considered but not given? Why? @ -None Did you discuss the management of the patient with other professionals? @ -No Did you reconcile home meds? @ -No Was smoking cessation discussed for >3mins.? @ -No Was critical care preformed (if so, how long)? @ -No Were there social determinants of health that impacted care today? How? (Homelessness, low income, unemployed, alcoholism, drug addiction, transportation, low edu. Level, literacy, decrease access to med. care, custodial, r ehab)? @ -No Was there de-escalation of care discussed even if they declined? (Discuss DNR or withdrawal of care, Hospice)? @ -No What co-morbidities impacted this encounter? (DM, HTN, Smoking, COPD, CAD, Cancer, CVA, Hep., AIDS, mental health diagnosis, sleep apnea, morbid obesity)? @ -None Was patient admitted / discharged? @ -Discharged. Lab work obtained and found to be unremarkable. Urinalysis negative for signs of infection. Computed tomography scan of the abdomen and pelvis obtained revealing no acute process. Symptoms well controlled with IV fluids, Toradol, and a lidocaine patch. Advised that this is likely musculoskeletal in nature. Rx for Toradol, lidocaine patches, and robaxin provided with dosing instructions reviewed. Otherwise advised follow up with her PCP. Undiagnosed new problem with uncertain prognosis? @ -None Drug Therapy requiring intensive monitoring for toxicity (Heparin, Nitro, Insulin, Cardizem)? @ -None Were any procedures done? @ -None Diagnosis/symptom? @ -Right flank pain Acute, or Chronic, or Acute on Chronic? @ -Acute Uncomplicated (without systemic symptoms) or Complicated (systemic symptoms)? @ -Uncomplicated Side effects of treatment? @ -None Exacerbation, Progression, or Severe Exacerbation] @ -Not applicable Poses a threat to life or bodily function? @ -No Return precautions reviewed in depth, the patient is instructed to return to the emergency department with any new, worsening, or concerning symptoms. Patient verbalized understanding. This case was discussed in detail with the attending ED physician, Dr. Rodriguez. Presentation, findings, and treatment plan discussed in detail as well. - Lab Data Result diagrams: 08/27/23 11:25 08/27/23 11:25 Lab Results 08/27/23 08/27/23 08/27/23 Range/Units 11:25 11:25 11:25 WBC 8.2 (3.8-10.6) k/uL RBC 5.06 (3.80-5.40) m/uL Hgb 14.2 (11.4-16.0) gm/dL Hct 43.9 (34.0-46.0) % MCV 86.8 (80.0-100.0) fL MCH 28.1 (25.0-35.0) pg MCHC 32.4 (31.0-37.0) g/dL RDW 13.7 (11.5-15.5) % Plt Count 377 (150-450) k/uL MPV 8.6 Neutrophils % 64 % Lymphocytes % 25 % Monocytes % 5 % Eosinophils % 3 % Basophils % 1 % Neutrophils # 5.3 (1.3-7.7) k/uL Lymphocytes # 2.1 (1.0-4.8) k/uL Monocytes # 0.4 (0-1.0) k/uL Eosinophils # 0.3 (0-0.7) k/uL Basophils # 0.1 (0-0.2) k/uL Sodium (137-145) mmol/L Potassium (3.5-5.1) mmol/L Chloride (98-107) mmol/L Carbon Dioxide (22-30) mmol/L Anion Gap mmol/L BUN (7-17) mg/dL Creatinine (0.52-1.04) mg/dL Est GFR (CKD-EPI)AfAm (>60 ml/min/1.73 sqM) Est GFR (CKD-EPI)NonAf (>60 ml/min/1.73 sqM) Glucose (74-99) mg/dL Plasma Lactic Acid Yordy (0.7-2.0) mmol/L Calcium (8.4-10.2) mg/dL Total Bilirubin (0.2-1.3) mg/dL AST (14-36) U/L ALT (4-34) U/L Alkaline Phosphatase (38-126) U/L Total Protein (6.3-8.2) g/dL Albumin (3.5-5.0) g/dL Amylase (30-110) U/L Lipase (23-300) U/L Urine Color Light Yellow Urine Appearance Clear (Clear) Urine pH 6.0 (5.0-8.0) Ur Specific [place] 1.021 (1.001-1.035) Urine Protein Negative (Negative) Urine Glucose (UA) Negative (Negative) Urine Ketones Negative (Negative) Urine Blood Negative (Negative) Urine Nitrite Negative (Negative) Urine Bilirubin Negative (Negative) Urine Urobilinogen <2.0 (<2.0) mg/dL Ur Leukocyte Esterase Negative (Negative) Urine HCG, Qual Not Detected (Not Detectd) 08/27/23 08/27/23 Range/Units 11:25 11:39 WBC (3.8-10.6) k/uL RBC (3.80-5.40) m/uL Hgb (11.4-16.0) gm/dL Hct (34.0-46.0) % MCV (80.0-100.0) fL MCH (25.0-35.0) pg MCHC (31.0-37.0) g/dL RDW (11.5-15.5) % Plt Count (150-450) k/uL MPV Neutrophils % % Lymphocytes % % Monocytes % % Eosinophils % % Basophils % % Neutrophils # (1.3-7.7) k/uL Lymphocytes # (1.0-4.8) k/uL Monocytes # (0-1.0) k/uL Eosinophils # (0-0.7) k/uL Basophils # (0-0.2) k/uL Sodium 141 (137-145) mmol/L Potassium 4.5 (3.5-5.1) mmol/L Chloride 110 H (98-107) mmol/L Carbon Dioxide 25 (22-30) mmol/L Anion Gap 6 mmol/L BUN 5 L (7-17) mg/dL Creatinine 0.60 (0.52-1.04) mg/dL Est GFR (CKD-EPI)AfAm >90 (>60 ml/min/1.73 sqM) Est GFR (CKD-EPI)NonAf >90 (>60 ml/min/1.73 sqM) Glucose 94 (74-99) mg/dL Plasma Lactic Acid Yordy 1.0 (0.7-2.0) mmol/L Calcium 9.5 (8.4-10.2) mg/dL Total Bilirubin 0.4 (0.2-1.3) mg/dL AST 28 (14-36) U/L ALT 42 H (4-34) U/L Alkaline Phosphatase 66 (38-126) U/L Total Protein 7.0 (6.3-8.2) g/dL Albumin 4.1 (3.5-5.0) g/dL Amylase 45 (30-110) U/L Lipase 49 (23-300) U/L Urine Color Urine Appearance (Clear) Urine pH (5.0-8.0) Ur Specific [place] (1.001-1.035) Urine Protein (Negative) Urine Glucose (UA) (Negative) Urine Ketones (Negative) Urine Blood (Negative) Urine Nitrite (Negative) Urine Bilirubin (Negative) Urine Urobilinogen (<2.0) mg/dL Ur Leukocyte Esterase (Negative) Urine HCG, Qual (Not Detectd) - Radiology Data Radiology results: report reviewed, image reviewed Disposition Clinical Impression: Back pain Disposition: HOME SELF-CARE Instructions (If sedation given, give patient instructions): Flank Pain (ED), Back Pain (ED) Additional Instructions: Return to the emergency department with any new, worsening, or concerning symptoms. Take the Toradol with Tylenol as needed for pain relief. If you choose to take the Toradol, do not take any other anti-inflammatories such as ibuprofen, take one or the other. You can take the Robaxin as 1-2 tablets up to 3-4 times daily. Be aware that this may make you drowsy and you should take it at night until you know how it affects you. You can also apply the lidocaine patches daily. Follow up with your primary care provider in 1-2 days. Prescriptions: Lidocaine 5% Patch [Lidoderm 5% Patch] 1 patch TOPICAL DAILY PRN #30 patch PRN Reason: Pain methocarbamoL [Robaxin-750] 750 mg PO QID PRN #20 tab PRN Reason: Pain Ketorolac [Toradol] 10 mg PO Q6HR PRN #15 tab PRN Reason: Pain Is patient prescribed a controlled substance at d/c from ED?: No Referrals: None,Stated [Primary Care Provider] - 1-2 days Time of Disposition: 13:43
[2023-08-27 11:43] LABS: Basophils # (A) 0.1 k/uL (0-0.2); Basophils % (A) 1 %; Eosinophils # (A) 0.3 k/uL (0-0.7); Eosinophils % (A) 3 %; HCT 43.9 % (34.0-46.0); HGB 14.2 gm/dL (11.4-16.0); Lymphocytes # (A) 2.1 k/uL (1.0-4.8); Lymphocytes % (A) 25 %; MCH 28.1 pg (25.0-35.0); MCHC 32.4 g/dL (31.0-37.0); MCV 86.8 fL (80.0-100.0); Mean Platelet Volume 8.6; Monocytes # (A) 0.4 k/uL (0-1.0); Monocytes % (A) 5 %; Neutrophils # (A) 5.3 k/uL (1.3-7.7); Neutrophils % (A) 64 %; Platelet Count 377 k/uL (150-450); RBC 5.06 m/uL (3.80-5.40); RDW 13.7 % (11.5-15.5); WBC 8.2 k/uL (3.8-10.6)
[2023-08-27 11:49] LABS: Appearance,Urine Clear (Clear); Bilirubin,Urine Negative (Negative); Blood,Urine Negative (Negative); Color,Urine Light Yellow; Glucose,Urine (UA) Negative (Negative); Ketones,Urine Negative (Negative); Leukocyte Esterase,Urine Negative (Negative); Nitrite,Urine Negative (Negative); Protein,Urine Negative (Negative); Specific Gravity,Urine 1.021 (1.001-1.035); Urobilinogen,Urine <2.0 mg/dL (<2.0)
[2023-08-27 11:56] LABS: ALT 42 U/L (4-34); AST 28 U/L (14-36); African American GFR (CKD) >90 (>60 ml/min/1.73 sqM); Albumin 4.1 g/dL (3.5-5.0); Alkaline Phosphatase 66 U/L (38-126); Amylase 45 U/L (30-110); Anion Gap 6 mmol/L; Blood Urea Nitrogen 5 mg/dL (7-17); Calcium 9.5 mg/dL (8.4-10.2); Carbon Dioxide 25 mmol/L (22-30); Chloride 110 mmol/L (98-107); Glucose 94 mg/dL (74-99); Lipase 49 U/L (23-300); Non-African American GFR(CKD) >90 (>60 ml/min/1.73 sqM); Potassium 4.5 mmol/L (3.5-5.1); Sodium 141 mmol/L (137-145); Total Bilirubin 0.4 mg/dL (0.2-1.3)
--- NOTE | 2023-08-27 13:04 | CT ---
EXAMINATION TYPE: CT abdomen pelvis w con DATE OF EXAM: 08/27/2023 COMPARISON: 08/27/2021 HISTORY: Right upper and lower quadrant pain CT DLP: 795.9 mGycm Automated exposure control for dose reduction was used. TECHNIQUE: Helical acquisition of images was performed from the lung bases through the pelvis. CONTRAST: Performed without Oral Contrast and with IV Contrast, patient injected with 100 ml mL of Isovue 300. FINDINGS: The lung bases are clear. There is surgical absence of the gallbladder.. There is no biliary ductal dilatation. There is no focal mass or organomegaly involving the liver, pancreas, spleen or adrenal glands. There is no solid renal mass or hydronephrosis and there is homogeneous contrast enhancement of the r enal parenchyma. The caliber the abdominal aorta is normal is no retroperitoneal adenopathy or hemorr yaakov. The bowel loops are normal in caliber and there is no evidence of dilatation or obstruction. No infla mmatory changes are identified in the bowel wall or mesentery. The appendix is visualized and is norm al. There is no free intraperitoneal air or fluid. No pelvic mass, free fluid, abscess or adenopathy. There are bilateral ovarian cysts. Dominant right ovarian cyst measures 3 cm. The osseous structures and soft tissues are intact. IMPRESSION: No significant abnormality seen.
[2023-08-27 14:14] VITALS: BP 132/97; PULSE 80
== END 2023-08-27 14:11 | disposition home or self-care (01) ==
LOC: EC 09:51
DX: M54.9 Dorsalgia, unspecified (principal); F17.290 Nicotine dependence, other tobacco product, uncomplicated; F12.90 Cannabis use, unspecified, uncomplicated; Z86.59 Personal history of other mental and behavioral disorders
CPT/HCPCS: 36415; 80053; 82150; 83605; 83690; 85025; 81003; 81025; 74177; 99284; 96374; 96361; J1885; Q9967